=== PATIENT | male | born 1985 | race African-American/Black ===

== ENCOUNTER 2022-04-25 03:43 | Emergency (ER) | payer OTHER ==
[~2022-04-25] VITALS: Ht 180.3 cm; Wt 86.0 kg
[2022-04-25] MEDS ORDERED: ACETAMINOPHEN 500MG TABLET PO ONE (04:30)
[2022-04-25] MEDS ORDERED: IBUP-2029 MT (06:04)
[2022-04-25 06:17] VITALS: BP 130/86
== END 2022-04-25 06:19 | disposition home or self-care (01) ==
LOC: ER 03:43
DX: R51.9 Headache, unspecified (principal); J45.909 Unspecified asthma, uncomplicated
CPT/HCPCS: 99284